=== PATIENT | female | born 1970 | race Caucasian/White ===

== ENCOUNTER → 2016-05-28 | Outpatient (CLI) | payer BC ==
--- NOTE | 2016-05-30 14:44 | MM ---
Reason for exam: screening (asymptomatic). Last mammogram was performed 2 years and 11 months ago. Physical Findings: A clinical breast exam by your physician is recommended on an annual basis and results should be correlated with mammographic findings. MG Screening Mammo w CAD Bilateral CC and MLO view(s) were taken. Prior study comparison: July 08, 2013, bilateral digital screening mammo w/CAD. There are scattered fibroglandular densities. Focal asymmetry posterior right breast 1 o'clock appears more defined. A nodule 9 o'clock anterior right breast appears new. ASSESSMENT: Incomplete: need additional imaging evaluation, BI-RAD 0 RECOMMENDATION: Special view mammogram of the right breast. If lesion persists on supplemental views, image directed ultrasound is recommended. [facility] will attempt to contact patient to return for supplemental views and ultrasound if indicated.
== END | disposition home or self-care (01) ==
LOC: RADMAMWWP 16:48
PROVIDERS: ATTEND Obstetrics & Gynecology
DX: Z12.31 Encounter for screening mammogram for malignant neoplasm of breast (principal)

== ENCOUNTER → 2016-06-07 | Outpatient (CLI) | payer BC ==
--- NOTE | 2016-06-07 12:21 | MM ---
Reason for exam: additional evaluation requested from abnormal screening. Last mammogram was performed less than 1 month ago. Physical Findings: Nurse did not find any significant physical abnormalities on exam. MG 3D Work Up W/Cad RT ML, spot compression MLO, and spot compression CC view(s) were taken of the right breast. Prior study comparison: May 30, 2016, bilateral MG screening mammo w CAD. July 08, 2013, bilateral digital screening mammo w/CAD. Focal asymmetry in the right posterior aspect, does not persist on additional views. Nodularity in the right breast does persist. These results were verbally communicated with the patient and result sheet given to the patient on 06/07/16. ASSESSMENT: Incomplete: need additional imaging evaluation, BI-RAD 0 RECOMMENDATION: Ultrasound of the right breast.
--- NOTE | 2016-06-07 12:22 | USB ---
Reason for exam: additional evaluation requested from abnormal screening. History: Family history of breast cancer in paternal aunt at age 60. US Breast Workup Limited RT Right breast ultrasound demonstrates a 0.8 x 0.6 x 0.5cm oval, hypoechoic lesion at 9 o'clock. These results were verbally communicated with the patient and result sheet given to the patient on 06/07/16. ASSESSMENT: Suspicious, BI-RAD 4 RECOMMENDATION: Ultrasound core biopsy of the right breast. Called Dr. Taylor with mammographic findings and has scheduled an appointment for the patient for 06/20/16 at 3:[address] Barrow. Biopsy scheduled for 06/11/16 at 8:00. PRELIMINARY REPORT CALLED AND FAXED TO DR. BARROW ON 06/07/16 AT 300/TP.
== END | disposition home or self-care (01) ==
LOC: RADMAMWWP 07:48
PROVIDERS: ATTEND Obstetrics & Gynecology
DX: R92.8 Other abnormal and inconclusive findings on diagnostic imaging of breast (principal)
CPT/HCPCS: 76642; G0206; G0279

== ENCOUNTER → 2016-06-11 | Day surgery (SDC) | payer BC ==
[~2016-06-11] MED LIST: ALPRAZolam 0.25 MG TAB ONE; BACITRACIN OINT 1 EACH PACKET TOPICAL ONE; LIDOCAINE 1% INJ 10MG/ML (20 ML MDV) ONE; SODIUM BICARB 4% 5 ML VIAL (0.48 MEQ/ML) ONE
--- NOTE | 2016-06-11 09:26 | USB ---
EXAMINATION TYPE: US biopsy breast VAD RT, MG diagnostic mammo RT wo CAD DATE OF EXAM: 06/11/2016 8:55 AM CLINICAL HISTORY: R92.8 Prev ABN Mammogram. TECHNIQUE: Ultrasound guided core biopsy of right breast. COMPARISON: Prior mammogram and ultrasound 07 June 2016 FINDINGS: The procedure of ultrasound guided vacuum assisted core biopsy was explained to the patient. Benefits, alternatives, and risks were discussed. An informed consent was then obtained. The patient was placed in supine positioning for imaging and for the procedure. The overlying skin was prepped and draped in usual sterile fashion. Lidocaine buffered with bicarbonate was used as anesthetic into the skin and subcutaneous tissue up to area of concern in the right breast. There is a failed attempt at aspiration with an 18-gauge needle. Core biopsy using Tenmo needle device was also unsuccessful. A keshawn was made with surgical scalpel. Under ultrasound guidance, a 12-gauge vacuum assisted biopsy gun device was used to obtain 3 core samples. Following this, a biopsy clip was left in lesion. The patient tolerated the procedure well without any immediate complication. The patient was kept in the radiology department for short stay after the procedure and then discharged home in stable condition. Postprocedure digital mammogram shows the clip and postbiopsy changes in appropriate position. IMPRESSION: Successful, uncomplicated ultrasound guided vacuum assisted core biopsy of area of concern in the right breast, full pathology results to follow. Pathology Results: Benign BREAST, RIGHT, ULTRASOUND GUIDED CORE BIOPSY: FRAGMENTS OF FIBROADENOMA. FIBROCYSTIC CHANGE (STROMAL FIBROSIS, CYST FORMATION AND DUCT HYPERPLASIA). Recommendation Follow up mammogram and ultrasound of the right breast in 6 months. SUAGR
== END ==
LOC: RADUSWWP 07:01
PROVIDERS: ATTEND Surgery
DX: D24.1 Benign neoplasm of right breast (principal); N60.11 Diffuse cystic mastopathy of right breast; N60.91 Unspecified benign mammary dysplasia of right breast; R92.8 Other abnormal and inconclusive findings on diagnostic imaging of breast
CPT/HCPCS: 88305; 19083; G0206; A4648; J2001

== ENCOUNTER → 2017-02-15 | Outpatient (CLI) | payer BC ==
--- NOTE | 2017-02-15 10:37 | MM ---
Reason for exam: follow-up at short interval from prior study. Last mammogram was performed 8 months ago. History: Family history of breast cancer in paternal aunt at age 60. Benign US biopsy breast VAD RT of the right breast, June 11, 2016. Physical Findings: Nurse did not find any significant physical abnormalities on exam. MG 3D Diag Mammo W/Cad RT CC, MLO, and ML view(s) were taken of the right breast. Prior study comparison: June 11, 2016, right breast MG diagnostic mammo RT wo CAD. June 07, 2016, right breast MG 3d work up w/cad RT. There are scattered fibroglandular densities. Finding: There is a 6 mm equal density (isodense) mass in the posterior position of the right breast stable since 2013. Previous mammotome biopsy in the right breast. There is a chronic nodularity in the right breast. No significant changes in finding since June 11, 2016 and June 07, 2016. These results were verbally communicated with the patient and result sheet given to the patient on 02/15/17. ASSESSMENT: Benign, BI-RAD 2 RECOMMENDATION: Return to routine screening mammogram schedule for both breasts.
--- NOTE | 2017-02-15 10:39 | USB ---
Reason for exam: follow-up at short interval from prior study. History: Family history of breast cancer in paternal aunt at age 60. Benign US biopsy breast VAD RT of the right breast, June 11, 2016. US Breast RT Technologist: Magi Whyte Right breast ultrasound includes all four quadrants, the retroareolar region and axilla. Finding demonstrates a 0.6 x 0.4 x 0.5cm oval, hypoechoic lesion at 9 o'clock. These results were verbally communicated with the patient and result sheet given to the patient on 02/15/17. ASSESSMENT: Benign, BI-RAD 2 RECOMMENDATION: Return to routine screening mammogram schedule for both breasts.
== END | disposition home or self-care (01) ==
LOC: RADMAMWWP 09:04
PROVIDERS: ATTEND Surgery
DX: R92.8 Other abnormal and inconclusive findings on diagnostic imaging of breast (principal)
CPT/HCPCS: 76641; G0206; G0279

== ENCOUNTER → 2018-05-22 | Outpatient (CLI) | payer BC, OTHER ==
--- NOTE | 2018-05-26 08:53 | MM ---
Reason for exam: screening (asymptomatic). Last mammogram was performed 1 year and 3 months ago. History: Family history of breast cancer in paternal aunt at age 60. Benign US biopsy breast VAD RT of the right breast, June 11, 2016. Physical Findings: A clinical breast exam by your physician is recommended on an annual basis and results should be correlated with mammographic findings. MG 3D Screening Mammo W/Cad Bilateral CC, MLO, and XCCL view(s) were taken. Prior study comparison: February 15, 2017, right breast MG 3d diag mammo w/cad RT. June 11, 2016, right breast MG diagnostic mammo RT wo CAD. There are scattered fibroglandular densities. Previous mammotome biopsy in the right breast. Focal asymmetry left upper outer quadrant middle position, stable. No significant changes when compared with prior studies. ASSESSMENT: Benign, BI-RAD 2 RECOMMENDATION: Routine screening mammogram of both breasts in 1 year.
== END | disposition home or self-care (01) ==
LOC: RADMAMWWP 16:31
PROVIDERS: ATTEND Surgery
DX: Z12.31 Encounter for screening mammogram for malignant neoplasm of breast (principal)
CPT/HCPCS: 77063; 77067

== ENCOUNTER → 2018-12-24 | Outpatient (CLI) | payer OTHER ==
[2018-12-24 13:19] LABS: HCT 44.5 % (34.0-46.0); HGB 14.6 gm/dL (11.4-16.0); MCH 28.2 pg (25.0-35.0); MCHC 32.9 g/dL (31.0-37.0); MCV 85.7 fL (80.0-100.0); Mean Platelet Volume 6.3; Platelet Count 404 k/uL (150-450); RBC 5.18 m/uL (3.80-5.40); RDW 14.5 % (11.5-15.5); WBC 11.9 k/uL (3.8-10.6)
[2018-12-24 14:43] LABS: Erythrocyte Sedimentation Rate 28 mm/hr (0-20)
== END ==
LOC: LABWHC1 12:48
PROVIDERS: ATTEND Physical Medicine & Rehabilitation
DX: M47.26 Other spondylosis with radiculopathy, lumbar region (principal); M25.551 Pain in right hip
CPT/HCPCS: 36415; 85027; 85652; 86140

== ENCOUNTER → 2019-02-02 | Outpatient (CLI) | payer OTHER ==
--- NOTE | 2019-02-02 20:04 | US ---
EXAMINATION TYPE: US pelvis complete transvag DATE OF EXAM: 02/02/2019 COMPARISON: NONE CLINICAL HISTORY: R10.2 pelvic pain. Focal pelvic pain x 2 weeks. Hx NovaSure. LMP 12 years ago. G3 P 3. TECHNIQUE: Transvaginal (TV) and Transabdominal (TA) . Transabdominal sonographic images of the pel vis were acquired. Transvaginal sonographic images were medically necessary to better assess the fol lowing anatomy: Ovaries Date of LMP: 12 years ago EXAM MEASUREMENTS: Uterus: 8.8 x 5.1 x 3.4 cm Endometrial Stripe: not clearly seen Right Ovary: not seen Left Ovary: 3.8 x 2.3 x 2.0 cm *Limited due to body habitus. 1. Uterus: Anteverted. Limited visibility fundally. Hypoechoic area seen in the DALTON measurin.2 x 1.0 x 0.8 cm. Anechoic area seen in the DALTON measurin.0 x 0.7 x 0.7 cm. 2. Endometrium: Not well seen 3. Right Ovary: not seen 4. Left Ovary: Appears to be wnl Spectral, color and waveform doppler imaging shows arterial and venous flow within the left ovary; Right ovary is not seen. 5. Bilateral Adnexa: appear wnl 6. Posterior cul-de-sac: appears wnl Some nabothian cysts in the cervix are seen on transvaginal pelvic ultrasound. Markedly heterogeneous uterus. Endometrium not well visualized presumed atrophic. Left ovary is seen within normal limits. Right ovary not identified. No extraovarian masses seen IMPRESSION: Suboptimal study with markedly heterogeneous uterus in which small fibroids cannot be exc luded
== END | disposition home or self-care (01) ==
LOC: RADUSMAIN 17:50
PROVIDERS: ATTEND Internal Medicine Geriatric Medicine
DX: R10.2 Pelvic and perineal pain (principal)
CPT/HCPCS: 76830; 76856; 93976

== ENCOUNTER → 2019-06-01 | Outpatient (CLI) | payer OTHER ==
--- NOTE | 2019-06-03 07:36 | MM ---
Reason for exam: screening (asymptomatic). Last mammogram was performed 1 year ago. History: Family history of breast cancer in paternal aunt at age 60. Benign US biopsy breast VAD RT of the right breast, June 11, 2016. Physical Findings: A clinical breast exam by your physician is recommended on an annual basis and results should be correlated with mammographic findings. MG 3D Screening Mammo W/Cad Bilateral CC and MLO view(s) were taken. CV view(s) were taken of the right breast. Prior study comparison: May 22, 2018, bilateral MG 3d screening mammo w/cad. February 15, 2017, right breast MG 3d diag mammo w/cad RT. There are scattered fibroglandular densities. Previous mammotome biopsy in the right breast. Distortion left MLO view only, not on CC, similar to 05/22/18, not on nipple in profile. No significant changes when compared with prior studies. ASSESSMENT: Benign, BI-RAD 2 RECOMMENDATION: Routine screening mammogram of both breasts in 1 year.
== END | disposition home or self-care (01) ==
LOC: RADMAMWWP 16:49
PROVIDERS: ATTEND Obstetrics & Gynecology
DX: Z12.31 Encounter for screening mammogram for malignant neoplasm of breast (principal); R92.8 Other abnormal and inconclusive findings on diagnostic imaging of breast
CPT/HCPCS: 77063; 77067

== ENCOUNTER → 2020-07-08 | Outpatient (CLI) | payer BC, OTHER ==
--- NOTE | 2020-07-12 10:41 | MM ---
Reason for exam: screening (asymptomatic). Last mammogram was performed 1 year and 1 month ago. History: Family history of breast cancer in paternal aunt at age 60. Benign US biopsy breast VAD RT of the right breast, June 11, 2016. Physical Findings: A clinical breast exam by your physician is recommended on an annual basis and results should be correlated with mammographic findings. MG 3D Screening Mammo W/Cad Bilateral CC and MLO view(s) were taken. Prior study comparison: June 01, 2019, bilateral MG 3d screening mammo w/cad. May 22, 2018, bilateral MG 3d screening mammo w/cad. There are scattered fibroglandular densities. Previous mammotome biopsy in the right breast. No significant changes when compared with prior studies. ASSESSMENT: Benign, BI-RAD 2 RECOMMENDATION: Routine screening mammogram of both breasts in 1 year.
== END | disposition home or self-care (01) ==
LOC: RADMAMWWP 16:06
PROVIDERS: ATTEND Obstetrics & Gynecology
DX: Z12.31 Encounter for screening mammogram for malignant neoplasm of breast (principal); Z80.3 Family history of malignant neoplasm of breast
CPT/HCPCS: 77063; 77067

== ENCOUNTER → 2021-04-21 | Outpatient (CLI) | payer OTHER ==
--- NOTE | 2021-04-22 18:19 | CT ---
EXAMINATION TYPE: CT chest wo con DATE OF EXAM: 04/21/2021 COMPARISON: None HISTORY: cough, congestion [address] DLP: 867 mGycm. Automated Exposure Control for Dose Reduction was Utilized. TECHNIQUE: CT scan of the thorax is performed without IV contrast. FINDINGS: Lack of intravenous contrast could compromise sensitivity. LUNGS: The lungs are nearly clear with strand-like density present within the lingula and posterior r ight upper chest lateral pleural thickening, there is no concerning parenchymal mass or nodule identi fied. There is no pleural effusion or pneumothorax seen. The tracheobronchial tree is patent. MEDIASTINUM: Lack of IV contrast is noted to limit evaluation for mediastinal and especially hilar ad enopathy. There are no definitive greater than 1 cm hilar or mediastinal lymph nodes. Pulmonary racheal sarita enlarged. No cardiomegaly or pericardial effusion is seen. OTHER: Postcholecystectomy changes present. Diverticular change noted in the colon. There is thoracic spondylosis. IMPRESSION: Nondescript pleural thickening along the major fissure laterally. Correlate for possible pulmonary hypertension. Noncontrast exam.
== END | disposition home or self-care (01) ==
LOC: RADCTMAIN 16:30
PROVIDERS: ATTEND Internal Medicine Pulmonary Disease
DX: J92.9 Pleural plaque without asbestos (principal); U07.1 COVID-19
CPT/HCPCS: 71250

== ENCOUNTER → 2021-08-18 | Outpatient (CLI) | payer OTHER ==
--- NOTE | 2021-08-18 09:55 | MM ---
Reason for Exam: Screening (asymptomatic). Last mammogram was performed 1 year(s) and 1 month(s) ago. Patient History: Menarche at age 14. First Full-Term at age 29. 06/11/2016, Benign Core Biopsy on the right side. Paternal aunt had breast cancer, age 60. Risk Values: Yazmin 5 year model risk: 1.3%. NCI Lifetime model risk: 11.6%. Film Views: Bilateral CC views were taken. Bilateral MLO views were taken. CV views were taken. Prior Study Comparison: 05/22/2018 Bilateral Screening Mammogram, [facility]. 06/01/2019 Bilateral Screening Mammogram, [facility]. 07/08/2020 Bilateral Screening Mammogram, [facility]. Tissue Density: There are scattered fibroglandular densities. Findings: Analyzed By CAD. Biopsy clip in the right breast is redemonstrated. Prominent but benign-appearing right axillary lymph nodes are redemonstrated. There is no suspicious group of microcalcifications or new suspicious mass in either breast. Overall Assessment: Benign, BI-RAD 2 Management: Screening Mammogram of both breasts in 1 year. A clinical breast exam by your physician is recommended on an annual basis and results should be correlated with mammographic findings. Electronically signed and approved by: Tyrell Davis M.D.
[2021-08-18 14:55] LABS: Basophils # (A) 0.07 X 10*3/uL (0.00-0.10); Basophils % (A) 0.9 %; Eosinophils # (A) 0.34 X 10*3/uL (0.04-0.35); Eosinophils % (A) 4.2 %; HCT 44.9 % (37.2-46.3); HGB 14.2 g/dL (12.0-15.0); Immature Grans, Automated 0.7 %; Lymphocytes % (A) 24.5 %; MCH 28.3 pg (27.0-32.0); MCHC 31.6 g/dL (32.0-37.0); MCV 89.6 fL (80.0-97.0); Mean Platelet Volume 9.6 fL (9.5-12.2); Monocytes # (A) 0.76 X 10*3/uL (0.20-1.00); Monocytes % (A) 9.3 %; NRBC Per 100 WBC 0 /100 WBCS (0.0-0.0); Neutrophils # (A) 4.94 X 10*3/uL (1.80-7.70); Neutrophils % (A) 60.4 %; Platelet Count 311 X 10*3/uL (140-440); RBC 5.01 X 10*6/uL (4.10-5.20); RDW 13.4 % (11.5-14.5); WBC 8.17 X 10*3/uL (4.50-10.00)
[2021-08-18 15:27] LABS: ALT 29 U/L (8-44); AST 29 U/L (13-35); African American GFR (CKD) 76.1 (60.0-200.0); Albumin 4.2 g/dL (3.8-4.9); Albumin/Globulin Ratio 1.24 (1.60-3.17); Alkaline Phosphatase 79 U/L (41-126); Blood Urea Nitrogen 16.3 mg/dL (9.0-27.0); Calcium 9.5 mg/dL (8.7-10.3); Carbon Dioxide 24.1 mmol/L (20.0-27.5); Chloride 104 mmol/L (96-109); Chol/HDL Ratio 4.77 Ratio; Globulin 3.4 g/dL (1.6-3.3); Glucose 99 mg/dL (70-110); LDL Cholesterol,Calculated 96.9 mg/dL (0.0-131.0); Non-African American GFR(CKD) 65.6 (60.0-200.0); Potassium 4.4 mmol/L (3.5-5.5); Sodium 138 mmol/L (135-145); Total Protein 7.6 g/dL (6.2-8.2)
== END | disposition home or self-care (01) ==
LOC: RADMAMWWP 07:01
PROVIDERS: ATTEND Obstetrics & Gynecology
DX: Z12.31 Encounter for screening mammogram for malignant neoplasm of breast (principal); R73.9 Hyperglycemia, unspecified; E78.5 Hyperlipidemia, unspecified; E03.9 Hypothyroidism, unspecified; E55.9 Vitamin D deficiency, unspecified
CPT/HCPCS: 36415; 77063; 77067; 80053; 80061; 82306; 83036; 84439; 84443; 85025

== ENCOUNTER → 2021-09-29 | Outpatient (CLI) | payer MEDICAID, OTHER ==
--- NOTE | 2021-09-29 09:40 | US ---
EXAMINATION TYPE: US abdomen complete DATE OF EXAM: 09/29/2021 COMPARISON: NONE CLINICAL HISTORY: R10.9 ABD PAIN. known fatty liver, patient feels superficial lumps within her RUQ, cholecystectomy EXAM MEASUREMENTS: Liver Length: 22.2 cm Gallbladder Wall: Surgically absent CBD: 0.6 cm Spleen: 13.8 cm Right Kidney: 12.4 x 5.0 x 4.2 cm Left Kidney: 9.8 x 4.1 x 4.6 cm Pancreas: wnl Liver: enlarged, heterogeneous liver Gallbladder: surgically absent Evidence for sonographic Campos's sign: no CBD: wnl Spleen: slightly enlarged Right Kidney: wnl Left Kidney: wnl Upper IVC: wnl Abd Aorta: wnl soft tissue scan of RUQ produces no focal abnormality IMPRESSION: 1. Hepatomegaly with mild fatty infiltration liver. 2. No suspicious focal abnormality at the palpable region right upper quadrant.
== END | disposition home or self-care (01) ==
LOC: RADUSWWP 07:06
PROVIDERS: ATTEND Internal Medicine Geriatric Medicine
DX: R10.9 Unspecified abdominal pain (principal)
CPT/HCPCS: 76700

== ENCOUNTER → 2021-12-06 | Outpatient (CLI) | payer MEDICAID, OTHER ==
--- NOTE | 2021-12-08 09:37 | CT ---
EXAMINATION TYPE: CT abdomen pelvis wo/w con DATE OF EXAM: 12/06/2021 COMPARISON: None HISTORY: R19.00 INTRA-ABD AND PELVIC SWELLING, MASS AND LUM CONTRAST: CT scan of the abdomen and pelvis is performed without Oral Contrast and without and with IV Contrast , patient injected with 100 mL of Isovue 300. FINDINGS: LUNG BASES-: No visible nodule. No infiltrate. LIVER/GB: The gallbladder is surgically absent. Mild hepatic steatosis. No space occupying hepatic lesion. Biliary tree is of normal caliber. PANCREAS: No inflammation. No distinct mass. SPLEEN: No splenic enlargement. No lesion seen. ADRENALS: No nodule. No thickening. KIDNEYS/BLADDER: No hydronephrosis. No nephrolithiasis. No distinct renal mass. Urinary bladder g rossly unremarkable. BOWEL: Normal appendix. Normal bowel caliber. No inflammation. GENITAL ORGANS: No gross abnormality. LYMPH NODES: No greater than 1cm abdominal or pelvic lymph nodes are appreciated. AORTA: No significant abnormality. OSSEOUS STRUCTURES: No significant abnormality is seen. OTHER: No significant additional abnormality is seen. IMPRESSION: 1. Mild hepatic steatosis. Otherwise unremarkable study.
== END | disposition home or self-care (01) ==
LOC: RADCTMAIN 14:42
PROVIDERS: ATTEND Internal Medicine Geriatric Medicine
DX: R19.00 Intra-abdominal and pelvic swelling, mass and lump, unspecified site (principal); R79.9 Abnormal finding of blood chemistry, unspecified
CPT/HCPCS: 82565; 84520; 74178; 36415; Q9967

== ENCOUNTER → 2022-08-20 | Outpatient (CLI) | payer MEDICAID, OTHER ==
--- NOTE | 2022-08-21 19:55 | MM ---
Reason for Exam: Screening (asymptomatic). Last screening mammogram was performed 12 month(s) ago. Patient History: Menarche at age 14. First Full-Term at age 29. Perimenopausal. 06/11/2016, Benign Core Biopsy on the right side. Paternal aunt had breast cancer, age 60. Risk Values: Yazmin 5 year model risk: 1.3%. NCI Lifetime model risk: 11.4%. Prior Study Comparison: 06/01/2019 Bilateral Screening Mammogram, [facility]. 07/08/2020 Bilateral Screening Mammogram, [facility]. 08/18/2021 Bilateral MG 3D screening mammo w/cad, [facility]. Tissue Density: There are scattered fibroglandular densities. Findings: Analyzed By CAD. Unchanged global asymmetry upper outer quadrant left breast. Microclip lateral right breast from prior biopsy. There is no suspicious group of microcalcifications or new suspicious mass in either breast. Overall Assessment: Benign, BI-RAD 2 Management: Screening Mammogram of both breasts in 1 year. . Patient should continue monthly self-breast exams. A clinical breast exam by your physician is recommended on an annual basis. This exam should not preclude additional follow-up of suspicious palpable abnormalities. Note on Yazmin scores and lifetime risk: 1. A Yazmin score greater than 3% is considered moderate risk. If this is the case, consider specialist referral to assess eligibility for a risk reducing agent. 2. If overall lifetime risk for the development of breast cancer is 20% or higher, the patient may qualify for future screening with alternating mammogram and breast MRI. Electronically signed and approved by: Veronica Pena M.D. Radiologist
== END | disposition home or self-care (01) ==
LOC: RADMAMWWP 16:48
PROVIDERS: ATTEND Obstetrics & Gynecology
DX: Z12.31 Encounter for screening mammogram for malignant neoplasm of breast (principal); Z80.3 Family history of malignant neoplasm of breast
CPT/HCPCS: 77063; 77067

== ENCOUNTER → 2022-10-10 | Outpatient (CLI) | payer MEDICAID, OTHER ==
--- NOTE | 2022-10-12 07:45 | MR ---
EXAMINATION TYPE: MR hip RT wo con DATE OF EXAM: 10/10/2022 COMPARISON: Radiograph 10/08/2022 HISTORY: 52-year-old female M25.551, Right hip/groin pain, radiating down leg, limited movement x 4 m onths, TECHNIQUE: Multiplanar, multisequence images of the right hip were obtained without IV contrast. FINDINGS: No evidence for hip fracture or AVN. There is a multilocular cystic area along the central weightbearing aspect of the acetabulum measurin g 1.7 x 1.4 cm. Possibly related to focal osteoarthritic change. Small right hip joint effusion is as ymmetric to the contralateral side. The sacrum and SI joints are intact. The rectus femoris and hamstrings origins as well as the bilateral gluteal and iliopsoas insertions a ppear intact. Small cervical nabothian cysts measuring up to 1.2 cm. Uterus is anteverted. Both ovaries are visuali zed. Sigmoid diverticulosis. Symmetric course, caliber, and signal intensity in this sciatic nerves. No significant soft tissue abnormality is seen. No suspicious bone marrow replacement. IMPRESSION: 1. A 1.7 cm multilocular cystic lesion along the central weightbearing aspect of the acetabulum. Poss ibly a degenerative subchondral geode relating to focal osteoarthritic change. Recommend follow-up MR I in 6 months to reassess. A small focus of fibrosis dysplasia is also possible. Location is atypical for other lesions such as giant cell tumor. 2. An asymmetric small right hip joint effusion. 3. Sigmoid diverticulosis.
== END | disposition home or self-care (01) ==
LOC: RADMRIMAIN 06:52
PROVIDERS: ATTEND Orthopaedic Surgery
DX: K57.30 Diverticulosis of large intestine without perforation or abscess without bleeding (principal); M25.451 Effusion, right hip; N88.8 Other specified noninflammatory disorders of cervix uteri

== ENCOUNTER → 2022-10-10 | Outpatient (CLI) | payer MEDICAID, OTHER ==
[2022-10-10 11:09] LABS: HCT 44.4 % (37.2-46.3); HGB 14.4 d/dL (12.0-15.0); MCH 28.9 pg (27.0-32.0); MCHC 32.4 d/dL (32.0-37.0); MCV 89.2 FL (80.0-97.0); Mean Platelet Volume 9.2 FL (9.5-12.2); NRBC Per 100 WBC 0 X 10*3/uL (0.00-0.01); Platelet Count 298 X 10*3/uL (140-440); RBC 4.98 X 10*6/uL (4.10-5.20); RDW 13.7 % (11.5-14.5); WBC 8.87 X 10*3/uL (4.50-10.00)
[2022-10-10 11:10] LABS: Basophils # (A) 0.06 X 10*3/uL (0.00-0.10); Basophils % (A) 0.7 %; Eosinophils # (A) 0.37 X 10*3/uL (0.04-0.35); Eosinophils % (A) 4.2 %; Lymphocytes # (A) 2.12 X 10*3/uL (0.90-5.00); Lymphocytes % (A) 23.9 %; Monocytes # (A) 0.74 X 10*3/uL (0.20-1.00); Monocytes % (A) 8.3 %; Neutrophils # (A) 5.51 X 10*3/uL (1.80-7.70); Neutrophils % (A) 62.1 %
[2022-10-10 17:10] LABS: Blood Urea Nitrogen 16.2 mg/dL (9.0-27.0); Chloride 105 mmol/L (96-109); Chol/HDL Ratio 4.53 Ratio; Glucose 92 mg/dL (70-110); LDL Cholesterol,Calculated 87.2 mg/dL (0.0-131.0); Potassium 4.5 mmol/L (3.5-5.5); Sodium 140 mmol/L (135-145)
[2022-10-10 17:11] LABS: ALT 54 U/L (8-44); AST 28 U/L (13-35); Albumin 4.1 d/dL (3.8-4.9); Albumin/Globulin Ratio 1.46 Ratio (1.60-3.17); Alkaline Phosphatase 72 U/L (41-126); Calcium 9.4 mg/dL (8.7-10.3); Carbon Dioxide 24.1 mmol/L (21.6-31.8); Globulin 2.8 d/dL (1.6-3.3); T4, Free (Free Thyroxine) 0.89 ng/dL (0.80-1.80); Total Bilirubin 0.4 mg/dL (0.3-1.2); Total Protein 6.9 d/dL (6.2-8.2)
== END | disposition home or self-care (01) ==
LOC: LABWHC1 07:48
PROVIDERS: ATTEND Nurse Practitioner Family
DX: E03.9 Hypothyroidism, unspecified (principal); E55.9 Vitamin D deficiency, unspecified; E78.5 Hyperlipidemia, unspecified; R73.9 Hyperglycemia, unspecified
CPT/HCPCS: 36415; 80053; 80061; 82306; 83036; 84439; 84443; 85025

== ENCOUNTER → 2022-10-12 | Outpatient (CLI) | payer MEDICAID, OTHER ==
--- NOTE | 2022-10-12 19:39 | CT ---
EXAMINATION TYPE: CT pelvis wo con DATE OF EXAM: 10/12/2022 COMPARISON: MRI 10/10/2022 HISTORY: Pt had MRI done yesterday where a cyst was found on rt hip. Pt has RT hip pain and difficult y walking. CT DLP: 1067.5 mGycm Automated exposure control for dose reduction was used. Contrast: None Technique: Axial images 3 mm thick sections. Reconstructed images the coronal and sagittal plane. FINDINGS: Some vacuum phenomenon is present in the sacroiliac joints. Symphysis pubis appears unremarkable. No acute fractures or dislocations are evident. Femoral heads articulate with the acetabulum. Joint spac e narrowing is present diffusely. Bowing compared with the prior MRI of the patient's superior medial acetabular bone cyst on the right is evident. This has smooth margins without severe erosions can be compatible with a benign bone cys t. IMPRESSION: 1. SUBTLE BONE CYST OR SUBCHONDRAL GEODE SUPERIOR RIGHT ACETABULUM CORRELATES WITH THE MRI.
== END | disposition home or self-care (01) ==
LOC: RADCTMAIN 14:48
PROVIDERS: ATTEND Orthopaedic Surgery
DX: M25.551 Pain in right hip (principal); R26.2 Difficulty in walking, not elsewhere classified
CPT/HCPCS: 72192

== ENCOUNTER → 2022-10-16 | Outpatient (CLI) | payer MEDICAID, OTHER ==
[2022-10-16 20:18] LABS: C Reactive Protein <0.30 mg/dL (0.00-0.80); Rheumatoid Factor, Qnt <15 IU/mL (0-15)
[2022-10-16 20:29] LABS: Basophils # (A) 0.08 X 10*3/uL (0.00-0.10); Basophils % (A) 0.5 %; Eosinophils # (A) 0.16 X 10*3/uL (0.04-0.35); Eosinophils % (A) 1.1 %; HCT 48.3 % (37.2-46.3); HGB 15.3 d/dL (12.0-15.0); Lymphocytes # (A) 2.67 X 10*3/uL (0.90-5.00); Lymphocytes % (A) 18.1 %; MCH 28.5 pg (27.0-32.0); MCHC 31.7 d/dL (32.0-37.0); MCV 89.9 FL (80.0-97.0); Mean Platelet Volume 9.7 FL (9.5-12.2); Monocytes # (A) 1.31 X 10*3/uL (0.20-1.00); Monocytes % (A) 8.9 %; NRBC Per 100 WBC 0 X 10*3/uL (0.00-0.01); Neutrophils # (A) 10.43 X 10*3/uL (1.80-7.70); Neutrophils % (A) 70.5 %; Platelet Count 357 X 10*3/uL (140-440); RBC 5.37 X 10*6/uL (4.10-5.20); RDW 13.8 % (11.5-14.5); WBC 14.79 X 10*3/uL (4.50-10.00)
[2022-10-16 21:36] LABS: Erythrocyte Sedimentation Rate 45 mm/Hr (0-30)
[2022-10-17 11:40] LABS: HLA B27 NEGATIVE
== END | disposition home or self-care (01) ==
LOC: LABWHC1 12:55
PROVIDERS: ATTEND Orthopaedic Surgery
DX: M25.50 Pain in unspecified joint (principal)
CPT/HCPCS: 36415; 84550; 85025; 85652; 86038; 86140; 86225; 86431; 86812

== ENCOUNTER → 2023-03-04 | Outpatient (CLI) | payer MEDICAID, OTHER ==
--- NOTE | 2023-03-04 19:44 | MR ---
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 Cyst in right hip, follow up Technique: Multiplanar, multisequence images of the right hip were obtained before and after administ ration of 13ml mL intravenous Gadavist gadolinium contrast. FINDINGS: Technologist notes: Due to back pain, the patient was repositioned during exam There is unchanged appearance to the 1.7 cm multilocular cystic lesion central weightbearing aspect o f the acetabulum. The lesion continues to show heterogeneous T1-weighted signal (including some intri nsic bright T1-weighted signal). Some minimal faint internal enhancement may be present. No significant joint effusion. SI joints and sacrum as well as both hips otherwise appear symmetric and intact as does the pubic sym physis. No acute or healing fracture. No suspicious bone marrow replacement. Uterus anteverted. Sigmoid diverticulosis. There is a dominant follicle or functional cyst measuring up to 2.0 cm within each ovary. There are a couple small cervical nabothian cysts measuring up to 1 c m. Intrasubstance tearing involving the left hamstrings origin appears to have progressed from 10/10/2022 . IMPRESSION: 1. Stable 1.7 cm multilocular cystic lesion central aspect of the subarticular right acetabulum. Mini mal internal faint enhancement may be present. No suspicious bone marrow replacement on T1 sequences. A degenerative subchondral cyst/geode or small focus of fibrous dysplasia remain favored. 2. Intrasubstance tearing at the left hamstrings origin has progressed from 10/10/2022. 3. Sigmoid diverticulosis.
== END | disposition home or self-care (01) ==
LOC: RADMRIMAIN 07:06
PROVIDERS: ATTEND Surgery Surgical Oncology
DX: D48.0 Neoplasm of uncertain behavior of bone and articular cartilage (principal); K57.30 Diverticulosis of large intestine without perforation or abscess without bleeding; M89.9 Disorder of bone, unspecified
CPT/HCPCS: 72197; A9585

== ENCOUNTER → 2023-06-20 | Outpatient (CLI) | payer MEDICAID ==
[2023-06-20 16:29] LABS: ALT 33 U/L (8-44); AST 29 U/L (13-35); Albumin 4.4 g/dL (3.8-4.9); Albumin/Globulin Ratio 1.42 Ratio (1.60-3.17); Alkaline Phosphatase 82 U/L (41-126); BUN/Creat Ratio 19.44 Ratio (12.00-20.00); Blood Urea Nitrogen 17.5 mg/dL (9.0-27.0); Calcium 10.2 mg/dL (8.7-10.3); Carbon Dioxide 23.2 mmol/L (21.6-31.8); Chloride 104 mmol/L (96-109); Chol/HDL Ratio 4.32 Ratio; Globulin 3.1 g/dL (1.6-3.3); Glucose 105 mg/dL (70-110); LDL Cholesterol,Calculated 113.1 mg/dL (0.0-131.0); Potassium 4.6 mmol/L (3.5-5.5); Sodium 140 mmol/L (135-145); T4, Free (Free Thyroxine) 0.93 ng/dL (0.80-1.80); Total Bilirubin 0.6 mg/dL (0.3-1.2); Total Protein 7.5 g/dL (6.2-8.2)
[2023-06-20 16:32] LABS: Basophils # (A) 0.07 X 10*3/uL (0.00-0.10); Basophils % (A) 0.8 %; Eosinophils # (A) 0.39 X 10*3/uL (0.04-0.35); Eosinophils % (A) 4.5 %; HCT 47.6 % (37.2-46.3); HGB 15.4 g/dL (12.0-15.0); Lymphocytes % (A) 23.3 %; MCH 28.8 pg (27.0-32.0); MCHC 32.4 g/dL (32.0-37.0); Mean Platelet Volume 9.1 FL (9.5-12.2); Monocytes # (A) 0.68 X 10*3/uL (0.20-1.00); Monocytes % (A) 7.9 %; NRBC Per 100 WBC 0 X 10*3/uL (0.00-0.01); Neutrophils # (A) 5.37 X 10*3/uL (1.80-7.70); Neutrophils % (A) 62.7 %; Platelet Count 358 X 10*3/uL (140-440); RBC 5.35 X 10*6/uL (4.10-5.20); RDW 13.6 % (11.5-14.5); WBC 8.58 X 10*3/uL (4.50-10.00)
[2023-06-20 17:21] LABS: Follicle Stimulating Hormone 5.7 mIU/mL; Luteinizing Hormone 7.5 mIU/mL
== END | disposition home or self-care (01) ==
LOC: LABWHC1 08:27
PROVIDERS: ATTEND Nurse Practitioner Family
DX: N95.1 Menopausal and female climacteric states (principal); E78.5 Hyperlipidemia, unspecified; E03.9 Hypothyroidism, unspecified; E55.9 Vitamin D deficiency, unspecified; R73.9 Hyperglycemia, unspecified
CPT/HCPCS: 36415; 80053; 80061; 82306; 83001; 83002; 83036; 84439; 84443; 85025

== ENCOUNTER → 2023-06-25 | Outpatient (CLI) | payer MEDICAID ==
--- NOTE | 2023-06-25 18:32 | CA ---
Transthoracic Echo Report Name: Magi Ross Age: 53 Gender: F : 1970 Exam Date: 06/25/2023 14:08 Exam Location: [place] [facility] Ht (in): 67 Wt (lb): 320 Ordering Physician: Max Zuniga MD Attending/Referring Phys: Carmenza Santos [facility] Obstetrical Anesthesiologist Priti Zhu RDCS Procedure CPT: Indications: R06.02 SOB Cardiac Hx: Technical Quality: Good Contrast 1: Total Dose (mL): Contrast 2: Total Dose (mL): MEASUREMENTS (Male / Female) Normal Values 2D ECHO LV Diastolic Diameter PLAX 6.0 cm 4.2 - 5.9 / 3.9 - 5.3 cm LV Systolic Diameter PLAX 3.7 cm IVS Diastolic Thickness 1.2 cm 0.6 - 1.0 / 0.6 - 0.9 cm LVPW Diastolic Thickness 1.1 cm 0.6 - 1.0 / 0.6 - 0.9 cm LV Relative Wall Thickness 0.4 RV Internal Dim ED PLAX 3.2 cm LA Systolic Diameter LX 3.6 cm 3.0 - 4.0 / 2.7 - 3.8 cm LV Diastolic Volume MOD 4C 160.7 cm??? LV Systolic Volume MOD 4C 60.7 cm??? LV Ejection Fraction MOD 4C 62.2 % LV Cardiac Index MOD 4C 2810.4 cm???/min???m??? LV Diastolic Length 4C 9.4 cm LV Systolic Length 4C 7.5 cm LV Diastolic Volume MOD 2C 136.8 cm??? LV Systolic Volume MOD 2C 41.4 cm??? LV Ejection Fraction MOD 2C 69.8 % LV Cardiac Index MOD 2C 2682.2 cm???/min???m??? LV Diastolic Length 2C 10.1 cm LV Systolic Length 2C 8.0 cm LA Volume 48.1 cm??? 18 - 58 / 22 - 52 cm??? LA Volume Index 17.8 cm???/m??? 16 - 28 cm???/m??? M-MODE Aortic Root Diameter MM 3.6 cm MV E Point Septal Separation 0.3 cm AV Cusp Separation MM 2.8 cm DOPPLER AV Peak Velocity 165.5 cm/s AV Peak Gradient 11.0 mmHg MV Area PHT 2.3 cm??? Mitral E Point Velocity 97.7 cm/s Mitral A Point Velocity 91.0 cm/s Mitral E to A Ratio 1.1 MV Deceleration Time 331.8 ms FINDINGS Left Ventricle Left ventricular ejection fraction is estimated at 55-60 %. Mildly increased left ventricular wall thickness. Normal left ventricular systolic function with no obvious regional wall motion abnormalities. Mildly dilated left ventricle Right Ventricle Normal right ventricular size. Unable to estimate the right ventricular systolic pressure. Right Atrium Normal right atrial size. Highly mobile interatrial septum, cannot exclude PFO Left Atrium Normal left atrial size. Mitral Valve Structurally normal mitral valve. Mild mitral regurgitation Aortic Valve Trileaflet aortic valve. No aortic valve stenosis or regurgitation. Tricuspid Valve Structurally normal tricuspid valve. No tricuspid stenosis, regurgitation or prolapse. Pulmonic Valve No pulmonic regurgitation.pulmonic valve not well visualized. Pericardium No pericardial effusion.echo free space anterior to the right ventricle likely represents a fat pad. Aorta Normal size aortic root and proximal ascending aorta. CONCLUSIONS Technically difficult study. Normal left ventricle systolic function with mildly dilated left ventricle Very limited Doppler study was mild mitral regurgitation Mobile intra-atrial septum was questionable PFO Previewed by: Dr. Sujit Landers MD (Electronically Signed) Final Date: 25 June 2023 18:31
== END | disposition home or self-care (01) ==
LOC: RADECHMAIN 13:51
PROVIDERS: ATTEND Internal Medicine Geriatric Medicine
DX: I51.7 Cardiomegaly (principal); I34.0 Nonrheumatic mitral (valve) insufficiency; Q21.19 Other specified atrial septal defect
CPT/HCPCS: 93306

== ENCOUNTER → 2023-09-10 | Outpatient (CLI) | payer MEDICAID ==
--- NOTE | 2023-09-11 13:08 | MM ---
Reason for Exam: Screening (asymptomatic). Last mammogram was performed 1 year(s) and 1 month(s) ago. Patient History: Menarche at age 14. First Full-Term at age 29. Perimenopausal. 06/11/2016, Benign Core Biopsy on the right side. Risk Values: Yazmin 5 year model risk: 1.4%. NCI Lifetime model risk: 11.2%. Prior Study Comparison: 07/08/2020 Bilateral Screening Mammogram, [facility]. 08/18/2021 Bilateral MG 3D screening mammo w/cad, [facility]. 08/20/2022 Bilateral MG 3D screening mammo w/cad, [facility]. Tissue Density: The breasts are heterogeneously dense, which may obscure small masses. Findings: Analyzed By CAD. There is no suspicious group of microcalcifications or new suspicious mass in either breast. Overall Assessment: Negative, BI-RAD 1 Management: Screening Mammogram of both breasts in 1 year. . Patient should continue monthly self-breast exams. A clinical breast exam by your physician is recommended on an annual basis. This exam should not preclude additional follow-up of suspicious palpable abnormalities. Note on Yazmin scores and lifetime risk: 1. A Yazmin score greater than 3% is considered moderate risk. If this is the case, consider specialist referral to assess eligibility for a risk reducing agent. 2. If overall lifetime risk for the development of breast cancer is 20% or higher, the patient may qualify for future screening with alternating mammogram and breast MRI. Electronically signed and approved by: Jose Luis Roberts M.D. Radiologis
== END | disposition home or self-care (01) ==
LOC: RADMAMWWP 08:10
PROVIDERS: ATTEND Obstetrics & Gynecology
DX: Z12.31 Encounter for screening mammogram for malignant neoplasm of breast (principal)
CPT/HCPCS: 77063; 77067

== ENCOUNTER → 2023-11-27 | Outpatient (CLI) | payer MEDICAID ==
[2023-11-27 15:11] LABS: Basophils # (A) 0.07 X 10*3/uL (0.00-0.10); Basophils % (A) 0.9 %; Eosinophils # (A) 0.33 X 10*3/uL (0.04-0.35); Eosinophils % (A) 4.2 %; HCT 45.7 % (37.2-46.3); HGB 14.7 g/dL (12.0-15.0); Lymphocytes # (A) 1.78 X 10*3/uL (0.90-5.00); Lymphocytes % (A) 22.6 %; MCH 29.3 pg (27.0-32.0); MCHC 32.2 g/dL (32.0-37.0); Mean Platelet Volume 9.4 FL (9.5-12.2); Monocytes # (A) 0.71 X 10*3/uL (0.20-1.00); NRBC Per 100 WBC 0 X 10*3/uL (0.00-0.01); Neutrophils # (A) 4.93 X 10*3/uL (1.80-7.70); Neutrophils % (A) 62.7 %; Platelet Count 326 X 10*3/uL (140-440); RBC 5.02 X 10*6/uL (4.10-5.20); RDW 13.9 % (11.5-14.5); WBC 7.87 X 10*3/uL (4.50-10.00)
[2023-11-27 16:25] LABS: ALT 34 U/L (8-44); AST 25 U/L (13-35); Albumin 4.3 g/dL (3.8-4.9); Albumin/Globulin Ratio 1.54 Ratio (1.60-3.17); Alkaline Phosphatase 77 U/L (41-126); Blood Urea Nitrogen 13.2 mg/dL (9.0-27.0); Calcium 9.8 mg/dL (8.7-10.3); Carbon Dioxide 23.3 mmol/L (21.6-31.8); Chloride 103 mmol/L (96-109); Chol/HDL Ratio 4.59 Ratio; Globulin 2.8 g/dL (1.6-3.3); Glucose 105 mg/dL (70-110); LDL Cholesterol,Calculated 103.1 mg/dL (0.0-131.0); Potassium 4.5 mmol/L (3.5-5.5); Sodium 139 mmol/L (135-145); Total Bilirubin 0.6 mg/dL (0.3-1.2); Total Protein 7.1 g/dL (6.2-8.2)
== END ==
LOC: LABWHC1 08:47
PROVIDERS: ATTEND Internal Medicine Geriatric Medicine
DX: R73.9 Hyperglycemia, unspecified (principal); R30.0 Dysuria; E78.5 Hyperlipidemia, unspecified
CPT/HCPCS: 36415; 80053; 80061; 83036; 84443; 85025; 87077; 87086; 87186

== ENCOUNTER → 2023-12-24 | Outpatient (CLI) | payer MEDICAID ==
--- NOTE | 2023-12-26 12:40 | MR ---
EXAMINATION TYPE: MR knee RT wo con DATE OF EXAM: 12/24/2023 COMPARISON: NONE HISTORY: Right knee pain for 2 months, medial aspect, after climbing a ladder. TECHNIQUE: Multiplanar, multisequence images of the knee is performed without IV contrast. FINDINGS: MEDIAL MENISCUS: Medial bulging medial meniscus on coronal images Truncated appearance posterior horn with abnormal signal inferiorly extending to articular surface. LATERAL MENISCUS: Anterior and posterior horns are intact without tear. CRUCIATE LIGAMENTS: The anterior and posterior cruciate ligaments are intact and unremarkable. COLLATERAL LIGAMENTS: The medial collateral ligament and lateral collateral ligament complex are inta ct and unremarkable. EXTENSOR MECHANISM: Visualized quadriceps and patellar tendons are intact. EFFUSION: No significant suprapatellar joint effusion. POPLITEAL CYST: No popliteal/sapp cyst. TRICOMPARTMENT SPACES: Advanced narrowing medial tibiofemoral compartment with [id number] appearanc e. Moderate to advanced narrowing patellofemoral compartment. [id number] tricompartmental spurr ing. CARTILAGE: Full thickness cartilaginous loss in the lateral tibiofemoral compartment. Some chondromal acia patella with cartilaginous loss along the posterior patellar pole. BONE MARROW SIGNAL: Large lesion central distal femur coronal image 18 measures 2.6 x 1.9 cm favors e nchondroma or other nonaggressive etiology. A few smaller adjacent osseous lesions. OTHER: No additional significant abnormality is appreciated. IMPRESSION: 1. Tricompartment degenerative changes are present. Moderate to advanced findings patellofemoral comp artment and advanced findings medial tibiofemoral compartment noted quite prominent for patient's age as detailed above. 2. Full-thickness tear posterior horn medial meniscus. [facility], , 12/26/2023 12:38 PM
== END | disposition home or self-care (01) ==
LOC: RADMRIMAIN 07:29
PROVIDERS: ATTEND Orthopaedic Surgery
DX: M25.561 Pain in right knee

== ENCOUNTER → 2024-01-01 | Outpatient (CLI) | payer MEDICAID ==
[2024-01-01 22:55] LABS: ALT 30 U/L (8-44); AST 24 U/L (13-35); Albumin 4.2 g/dL (3.8-4.9); Alkaline Phosphatase 82 U/L (41-126); BUN/Creat Ratio 15.56 Ratio (12.00-20.00); Calcium 9.3 mg/dL (8.7-10.3); Carbon Dioxide 22.4 mmol/L (21.6-31.8); Chloride 105 mmol/L (96-109); Glucose 103 mg/dL (70-110); Potassium 4.3 mmol/L (3.5-5.5); Sodium 138 mmol/L (135-145); Total Bilirubin 0.5 mg/dL (0.3-1.2); Total Protein 7.2 g/dL (6.2-8.2)
== END | disposition home or self-care (01) ==
LOC: LABWHC1 08:51
PROVIDERS: ATTEND Internal Medicine Geriatric Medicine
DX: R79.9 Abnormal finding of blood chemistry, unspecified (principal); R30.0 Dysuria
CPT/HCPCS: 36415; 80053; 87086

== ENCOUNTER → 2024-04-03 | Outpatient (CLI) | payer MEDICAID ==
--- NOTE | 2024-04-03 12:26 | MR ---
EXAMINATION TYPE: MR knee LT wo con DATE OF EXAM: 04/03/2024 10:51 AM COMPARISON: No radiographic correlation available CLINICAL INDICATION: Female, 54 years old with history of M25.562 PAIN IN LEFT KNEE, Left knee pain, heard pop while walking 1 month ago. TECHNIQUE: Multiplanar, multisequence imaging of the left knee is performed without IV contrast. FINDINGS: The ACL and PCL are intact. MCL shows some edematous change surrounding the intact fibers. LCL complex is intact. There is a radial tear at the posterior horn of the medial meniscus with secondary extrusion of the m eniscal body. Small oblique tear within the extruded meniscal body. Moderate to severe cartilage loss especially along the mid aspect of the medial compartment. Small inner margin tear involving the body of the lateral meniscus. Mild to moderate irregular cartil age loss throughout the mid aspect of the lateral compartment. Moderate diffuse cartilage thinning throughout the patellofemoral compartment with more severe cartil age loss along the medial patellar facet. Extensor mechanism is intact. Intermediate signal within the proximal patellar tendon could be magic angle or tendinosis. Anterior subcutaneous soft tissue swelling. Moderate to large knee joint effusion with mild chronic s ynovitis. Some extravasating contrast in the deep soft tissues noted. Suspect they trace leaking Bake r's cyst as well. Mild generalized muscle atrophy. Normal popliteal artery anatomy. Patchy red marrow which can be seen with anemia, obesity, smoking, chronic disease. IMPRESSION: 1. Through thickness radial tear posterior horn of the medial meniscus. There is also a small oblique tear within the extruded meniscal body. 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 2. Small inner margin tear body of the lateral meniscus. Mild overall lateral compartmental OA. 3. Moderate patellofemoral compartmental OA with the most extensive cartilage loss along the medial p atellar facet. 4. Grade 1 MCL sprain. 5. Moderate to large joint effusion with mild chronic synovitis. Trace leaking Carter's cyst. Anterior subcutaneous soft tissue swelling. [facility], , 04/03/2024 12:24 PM
== END | disposition home or self-care (01) ==
LOC: RADMRIMAIN 09:58
PROVIDERS: ATTEND Orthopaedic Surgery
DX: S83.242A Other tear of medial meniscus, current injury, left knee, initial encounter (principal); M17.12 Unilateral primary osteoarthritis, left knee; M65.90 Unspecified synovitis and tenosynovitis, unspecified site; M71.22 Synovial cyst of popliteal space [Baker], left knee; S83.412A Sprain of medial collateral ligament of left knee, initial encounter; Y93.01 Activity, walking, marching and hiking

== ENCOUNTER → 2024-04-10 | Outpatient (CLI) | payer MEDICAID ==
[2024-04-10 15:08] LABS: Basophils # (A) 0.08 X 10*3/uL (0.00-0.10); Basophils % (A) 0.8 %; Eosinophils # (A) 0.34 X 10*3/uL (0.04-0.35); Eosinophils % (A) 3.5 %; HCT 45.4 % (37.2-46.3); HGB 14.9 g/dL (12.0-15.0); Lymphocytes # (A) 1.83 X 10*3/uL (0.90-5.00); Lymphocytes % (A) 18.7 %; MCH 28.9 pg (27.0-32.0); MCHC 32.8 g/dL (32.0-37.0); Mean Platelet Volume 9.1 FL (9.5-12.2); Monocytes # (A) 0.78 X 10*3/uL (0.20-1.00); NRBC Per 100 WBC 0 X 10*3/uL (0.00-0.01); Neutrophils # (A) 6.66 X 10*3/uL (1.80-7.70); Neutrophils % (A) 68.1 %; Platelet Count 354 X 10*3/uL (140-440); RBC 5.16 X 10*6/uL (4.10-5.20); RDW 13.9 % (11.5-14.5); WBC 9.78 X 10*3/uL (4.50-10.00)
[2024-04-10 15:25] LABS: BUN/Creat Ratio 15.25 Ratio (12.00-20.00); Blood Urea Nitrogen 12.2 mg/dL (9.0-27.0); Calcium 9.6 mg/dL (8.7-10.3); Chloride 104 mmol/L (96-109); Glucose 102 mg/dL (70-110); Potassium 4.7 mmol/L (3.5-5.5); Sodium 139 mmol/L (135-145)
== END ==
LOC: LABPAT 08:45
PROVIDERS: ATTEND Orthopaedic Surgery
DX: M23.92 Unspecified internal derangement of left knee (principal)
CPT/HCPCS: 80048; 85025; 93005

== ENCOUNTER 2024-04-14 11:27 | Day surgery (SDC) | payer MEDICAID ==
--- NOTE | 2024-04-13 08:29 | P.HPOR ---
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 She thinks she twisted it. She notes anterior /medial pain along with swelling. She is having pain with any weightbearing activities. She has been limping. She feels like the knee gives out. She is having significant night symptoms. She has tried medications in addition to an injection with only temporary partial relief. Review of Systems Per HPI Past Medical History Past Medical History: Asthma Additional Past Medical History / Comment(s): Alpha 1 antitrypsin deficiency History of Any Multi-Drug Resistant Organisms: None Reported Past Surgical History: Cholecystectomy, Uterine Ablation Additional Past Surgical History / Comment(s): novasure ablation Past Anesthesia/Blood Transfusion Reactions: No Reported Reaction Smoking Status: Never smoker - Past Family History Father Family Medical History: No Reported History Medications and Allergies Home Medications Medication Instructions Recorded Confirmed Type Budesonide/Formoterol Fumarate 2 puff INHALATION DAILY 04/09/24 04/09/24 History [Budesonide-Formoterol 160-4.5] Celecoxib 200 mg PO DAILY 04/09/24 04/09/24 History Mucinex(Unk) 1 tab PO DAILY 04/09/24 04/09/24 History Vit C (Unk) 1 tab PO DAILY 04/09/24 04/09/24 History Vit D (Unk) 1 tab PO DAILY 04/09/24 04/09/24 History Allergies Allergy/AdvReac Type Severity Reaction Status Date / Time cyclobenzaprine Allergy Unknown Verified 04/09/24 15:25 [From Flexeril] Physical Examination - Knee left Appearance: effusion Effusion grade: grade 3 Varus alignment in stance: 5 degrees Tenderness with palpation: anterior, medial Pain: throughout ROM Gait: limping ROM: extension: -10 degrees ROM: flexion: 80 degrees Strength: extension: 5/5 Strength: flexion: 5/5 Meniscal tests: medial meniscal tests: positive, medial joint line pain: positive Results The patient is a well-developed well-nourished female of endomorphic habitus. HEENT exam is nonfocal, neck is supple. She has painless passive motion of her left hip. Straight leg raise is negative. She is tender about the medial joint line of the left knee. Collaterals are stable, Dolores's negative, Hedy's elicits medial pain. She has an antalgic gait pattern. Her distal neurovascular exam appears intact in the left lower extremity. - Diagnostic results Knee MRI: image reviewed (MRI of the left knee obtained the office shows a posterior medial meniscal tear along with a middle one third lateral meniscal tear.) Assessment and Plan Assessment: Left knee internal derangement with symptomatic medial meniscal tear Plan: I talked to the patient at length regarding her condition along with treatment options. At this point she is quite symptomatic having pain and mechanical symptoms despite conservative measures. After a thorough discussion she opts to proceed with surgery. We will plan to proceed with left knee arthroscopy with probable partial medial meniscectomy. Risks and benefits were discussed at length in layman's terms. We will likely perform that as an outpatient procedure.
[2024-04-14] MEDS ORDERED: LIDOCAINE 1% (10MG/ML) FOR IV START INTRADERMA PRN (11:48)
[2024-04-14] MEDS ORDERED: MIDAZOLAM 2 MG/2 ML VIAL IV PRN (11:48)
[2024-04-14 12:21] VITALS: TEMP 97.9
[2024-04-14] MEDS: ONDANSETRON 4 MG/2 ML VIAL IVP ONE (12:42)
[2024-04-14] MEDS: LACTATED RINGERS 1,000 ML IV SCH (12:42)
[2024-04-14] MEDS: DEXAMETHASONE SOD PHOSPHATE 4 MG/ML 1 ML VIAL IV ONE (12:42)
[2024-04-14] MEDS: IV FLUID CONTINUATION 1,000 ML IV ONE (12:46)
[2024-04-14] MEDS ORDERED: PHENYLEPHRINE 10 MG/ML VIAL ONE (12:51)
[2024-04-14] MEDS ORDERED: PROPOFOL 10 MG/ML 20 ML VIAL IV ONE (12:51)
[2024-04-14] MEDS ORDERED: LIDOCAINE 1% INJ 10MG/ML (20 ML MDV) ONE (12:51)
[2024-04-14] MEDS ORDERED: SUCCINYLCHOLINE CHLORIDE 200 MG/10 ML VIAL IV ONE (12:51)
[2024-04-14] MEDS ORDERED: MIDAZOLAM 2 MG/2 ML VIAL ONE (12:51)
[2024-04-14] MEDS ORDERED: HYDROmorphone (PF) 1 MG/ML ONE (12:51)
[2024-04-14] MEDS ORDERED: fentaNYL (PF) 50 MCG/ML 2 ML AMP ONE (12:51)
[2024-04-14] MEDS: ceFAZolin 3 GM in SODIUM CHLORIDE 0.9% 100 ML IVPB PRN (12:59)
[2024-04-14] MEDS: EPINEPHrine (PF) 1 ML in SODIUM CHLORIDE 0.9% IRRIGATIO 3,000 ML IRRIGATION ONE (13:15)
[2024-04-14 14:08] VITALS: RESP 16
[2024-04-14] MEDS: fentaNYL (PF) 50 MCG/ML 2 ML AMP IVP PRN (14:22)
--- NOTE | 2024-04-14 14:26 | P.OP ---
Date of Procedure: 04/14/24 Preoperative Diagnosis: Left knee posterior medial meniscal tear Postoperative Diagnosis: Same in addition to middle one third lateral meniscal tear Procedure(s) Performed: Left knee arthroscopic partial medial meniscectomy/partial lateral meniscectomy Anesthesia: GUSTAVOA Surgeon: Gray Martini Estimated Blood Loss (ml): 10 Pathology: none sent Condition: stable Disposition: PACU Indications for Procedure: The patient is a 54-year-old female who presents with progressive left knee pain and mechanical symptoms despite conservative measures. A discussion of the risks and benefits of operative intervention versus continued conservative measures was made with the patient. She opted to proceed with surgery. Operative risks include infection, neurovascular injury, development of blood clots, possible incomplete resolution of symptoms, possible worsening symptoms and need for subsequent procedures was discussed. Informed consent was obtained. Operative Findings: As below Description of Procedure: The patient was brought to the operating room, and after induction of general anesthesia examined the left knee. Collaterals were stable, Dolores was negative, and posterior drawer was negative. The left lower extremity was prepped and draped in a normal fashion. A superior lateral portal was made through a 3 mm skin incision superior and lateral to the patella. This was used for outflow. A lateral portal was made through a 5 mm vertical skin incision lateral to the patella tendon above the joint line. Diagnostic arthroscopy was performed. On inspection of the medial compartment, a complex tear involving the posterior meniscal root is noted in the white-junction. This was debrided back to stable base with straight baskets and a motorized shaver. I made an additional anterior medial portal to facilitate this. The remaining medial meniscus was stable and intact. Grade/3 chondral changes were noted diffusely in the posterior medial condyle and distal medial condyle. On inspection of the notch, the anterior cruciate ligament appeared to be intact. On inspection of the lateral compartment, a radial tear involving the middle one third of the lateral meniscus in the white-junction was noted. This was debrided back to a stable base with a motorized shaver. The remaining lateral meniscus was stable and intact. On inspection of the patellofemoral articulation, there was some chondral fibrillation however no loose chondral fragments. The gutters were clear debris. The knee was then thoroughly irrigated. The portals were closed with Steri-Strips. A sterile dressing was applied in addition to a compression stocking. The patient was awoken from general anesthesia and transferred to recovery room in good condition. Blood loss was estimated at 10 mL. No complications were incurred.
[2024-04-14] MEDS: HYDROmorphone 0.5 MG/0.5 ML SYRINGE IVP PRN (15:10)
[2024-04-14] MEDS: IV FLUID CONTINUATION 500 ML IV ONE (15:12)
[2024-04-14] MEDS: HYDROcodone/APAP 7.5-325MG 1 EACH TAB PO ONE (15:44)
[2024-04-14 16:09] VITALS: PULSE 83
[2024-04-14 16:14] VITALS: BP 109/76
== END 2024-04-14 16:56 | disposition home or self-care (01) ==
LOC: OR 11:27
PROVIDERS: ATTEND Orthopaedic Surgery
DX: S83.242A Other tear of medial meniscus, current injury, left knee, initial encounter (principal); J45.909 Unspecified asthma, uncomplicated; Z79.1 Long term (current) use of non-steroidal anti-inflammatories (NSAID); Z90.49 Acquired absence of other specified parts of digestive tract
CPT/HCPCS: 29880; J2250; J0330; J1100; J0690; J2405; J0171; J2003; J3010; J1171 ×2; J2704; J2371

== ENCOUNTER → 2024-06-08 | Outpatient (CLI) | payer MEDICAID ==
--- NOTE | 2024-06-15 19:30 | P.PCN ---
Date of Procedure: 06/08/24 Operative Findings: Home sleep study report Date of service is 06/08/2024 History 54-year-old female patient suspected to have obstructive sleep apnea. The patient is morbidly obese and carries a body mass index of 54. At same time, the patient has loud snoring and chronic hypersomnia and sleepiness. [place] score is 15/24. She has a Mallampati class I. The clinical suspicion for obstructive sleep apnea was quite high based on that the patient was offered a home sleep study. Comorbidities include obesity, allergic rhinitis, nonalcoholic fatty liver disease Physical findings The body mass index is 54.8. Weight is 350 pounds and height is 5 feet and 7 inches Technical description The [employer] Apnea[employer] system was used to complete his home sleep study. This is a type III home sleep study evaluation. This evaluation was done in 7 hours and 17 minutes. The study started at 10:34 PM and ended at 5:51 AM. There was a total of 7 hours and 4 minutes of flow and oxygen saturation monitoring and as such this was an adequate study Results The respiratory analysis showed a total of 6 obstructive apneas and 78 obstructive hypopneas. The resulting AHI was 11.9. Disease was slightly worsening supine body position with an AHI of 15 Oxygenation analysis The patient encountered a total of 118 oxygen desaturation episodes with a pulse ox to above more than 4%. The baseline pulse ox was 94% on room air oxygen while awake. Average pulse ox during sleep was 91% and the minimum pulse ox was 83% and this patient spent approximately 21 minutes of sleep time below pulse ox of 89% Cardiac summary Average heart rate was 70 with a minimum heart rate of 55 and a maximum heart rate of 104 Assessment TREVOR, mild in severity with an AHI of 11.9 Mild nocturnal oxygen desaturation with a minimum pulse ox of 83% during sleep Morbid obesity with a BMI of 54.8 Chronic allergic rhinitis Nonalcoholic fatty liver disease Plan Will discuss findings with the patient The obstructive sleep apnea disease severity is mild. Nevertheless, the patient is quite symptomatic and the patient has chronic hypersomnia and sleepiness. Will discuss with her CPAP therapy and we will proceed with treatment as the patient is willing to undertake therapy with CPAP. Encourage weight loss Maintain good sleep hygiene measures Maintain regular sleep schedule Will continue to follow
== END ==
LOC: 3 N SLEEP 10:51
PROVIDERS: ATTEND Internal Medicine Critical Care Medicine
DX: G47.33 Obstructive sleep apnea (adult) (pediatric) (principal); J30.9 Allergic rhinitis, unspecified; E66.01 Morbid (severe) obesity due to excess calories; Z68.43 Body mass index [BMI] 50.0-59.9, adult; K76.0 Fatty (change of) liver, not elsewhere classified; Z88.2 Allergy status to sulfonamides

== ENCOUNTER → 2024-07-06 | Outpatient (CLI) | payer MEDICAID ==
[2024-07-06 13:09] LABS: Influenza A Not Detected (Not Detectd); Influenza B Not Detected (Not Detectd); RSV Detected (Not Detectd)
== END | disposition home or self-care (01) ==
LOC: LABWHC1 10:10
PROVIDERS: ATTEND Internal Medicine Critical Care Medicine
DX: R05.9 Cough, unspecified (principal)
CPT/HCPCS: 87636

== ENCOUNTER → 2024-07-30 | Outpatient (CLI) | payer MEDICAID ==
[2024-07-30 15:42] LABS: HCT 46.5 % (37.2-46.3); HGB 14.7 g/dL (12.0-15.0); MCH 28.8 pg (27.0-32.0); MCHC 31.6 g/dL (32.0-37.0); Mean Platelet Volume 9.4 FL (9.5-12.2); NRBC Per 100 WBC 0 X 10*3/uL (0.00-0.01); Platelet Count 310 X 10*3/uL (140-440); RBC 5.11 X 10*6/uL (4.10-5.20); RDW 14.3 % (11.5-14.5); WBC 7.85 X 10*3/uL (4.50-10.00)
[2024-07-30 15:43] LABS: Basophils # (A) 0.05 X 10*3/uL (0.00-0.10); Basophils % (A) 0.6 %; Eosinophils # (A) 0.32 X 10*3/uL (0.04-0.35); Eosinophils % (A) 4.1 %; Lymphocytes # (A) 1.75 X 10*3/uL (0.90-5.00); Lymphocytes % (A) 22.3 %; Monocytes # (A) 0.67 X 10*3/uL (0.20-1.00); Monocytes % (A) 8.5 %; Neutrophils % (A) 63.7 %
[2024-07-30 16:16] LABS: ALT 39 U/L (8-44); AST 31 U/L (13-35); Albumin 4.2 g/dL (3.8-4.9); Albumin/Globulin Ratio 1.62 Ratio (1.60-3.17); Alkaline Phosphatase 88 U/L (41-126); Blood Urea Nitrogen 19.6 mg/dL (9.0-27.0); Calcium 9.3 mg/dL (8.7-10.3); Carbon Dioxide 22.6 mmol/L (21.6-31.8); Chloride 105 mmol/L (96-109); Chol/HDL Ratio 4.95 Ratio; Globulin 2.6 g/dL (1.6-3.3); Glucose 118 mg/dL (70-110); Potassium 4.4 mmol/L (3.5-5.5); Sodium 139 mmol/L (135-145); T4, Free (Free Thyroxine) 0.81 ng/dL (0.80-1.80); Total Bilirubin 0.8 mg/dL (0.3-1.2); Total Protein 6.8 g/dL (6.2-8.2)
== END | disposition home or self-care (01) ==
LOC: LABWHC1 07:55
PROVIDERS: ATTEND Internal Medicine Geriatric Medicine
DX: Z00.00 Encounter for general adult medical examination without abnormal findings (principal); E78.5 Hyperlipidemia, unspecified; E03.9 Hypothyroidism, unspecified; E55.9 Vitamin D deficiency, unspecified; R73.9 Hyperglycemia, unspecified
CPT/HCPCS: 36415; 80053; 80061; 82306; 83036; 84439; 84443; 85025

== ENCOUNTER → 2024-09-14 | Outpatient (CLI) | payer MEDICAID ==
--- NOTE | 2024-09-15 07:21 | MM ---
Reason for Exam: Screening (asymptomatic). Last screening mammogram was performed 12 month(s) ago. Patient History: Menarche at age 14. First Full-Term at age 29. Postmenopausal. 06/11/2016, Benign Core Biopsy on the right side. Risk Values: Yazmin 5 year model risk: 1.4%. NCI Lifetime model risk: 11.0%. Prior Study Comparison: 08/18/2021 Bilateral MG 3D screening mammo w/cad, [facility]. 08/20/2022 Bilateral MG 3D screening mammo w/cad, [facility]. 09/10/2023 Bilateral MG 3D screening mammo w/cad, [facility]. Tissue Density: There are scattered areas of fibroglandular density. Findings: Analyzed By CAD. Chronic low density nodularity on the right. Microclip right breast from prior biopsy. There is no suspicious group of microcalcifications or new suspicious mass in either breast. Overall Assessment: Benign, BI-RAD 2 Management: Screening Mammogram of both breasts in 1 year. Patient should continue monthly self-breast exams. A clinical breast exam by your physician is recommended on an annual basis. This exam should not preclude additional follow-up of suspicious palpable abnormalities. Note on Yazmin scores and lifetime risk: 1. A Yazmin score greater than 3% is considered moderate risk. If this is the case, consider specialist referral to assess eligibility for a risk reducing agent. 2. If overall lifetime risk for the development of breast cancer is 20% or higher, the patient may qualify for future screening with alternating mammogram and breast MRI. [facility], , 09/15/2024 7:17 AM. Electronically signed and approved by: Veronica Pena M.D. Radiologist
== END | disposition home or self-care (01) ==
LOC: RADMAMWWP 16:07
PROVIDERS: ATTEND Internal Medicine Geriatric Medicine
DX: Z12.31 Encounter for screening mammogram for malignant neoplasm of breast (principal); R92.323 Mammographic fibroglandular density, bilateral breasts; N63.10 Unspecified lump in the right breast, unspecified quadrant; Z78.0 Asymptomatic menopausal state
CPT/HCPCS: 77063; 77067